=== PATIENT | female | born 1965 | race Caucasian/White ===

== ENCOUNTER 2017-09-11 23:50 | Emergency (ER) | payer OTHER ==
[2017-09-12 00:02] VITALS: BP 145/79; PULSE 108; TEMP 98.9; BMI 23.9
[2017-09-12] MEDS ORDERED: ACETAMINOPHEN INJECTION 100 ML IVPB ONE (01:43)
[2017-09-12] MEDS ORDERED: ONDANSETRON 4 MG/2 ML VIAL ONE (02:24)
[2017-09-12] MEDS ORDERED: ONDANSETRON 4 MG/2 ML VIAL IVPUSH ONE (02:25)
[2017-09-12] MEDS ORDERED: FAMOTIDINE 20 MG/50 ML IVPB 20 MG/50 ML MG IVPB ONE (02:25)
--- NOTE | 2017-09-12 02:33 | PDOC ---
History of Present Illness - General Chief Complaint: Pain, Acute Stated Complaint: STOMACH PAIN Time Seen by Provider: 09/12/17 01:54 History Source: Patient Exam Limitations: No Limitations - History of Present Illness Initial Comments: CHIEF COMPLAINT: 52 y/o afebrile female with PMH brain aneurysm c/o nausea, vomiting, diarrhea and abdominal pain since yesterday. HISTORY OF PRESENT ILLNESS: The patient states she thought she had food poisoning so she tried to deal with her symptoms at home but they continued to worsen and now she has very bad left lower abdominal pain and she cannot keep anything down. She denies fever, ELKINS, cough, runny nose, CP, SOB, back pain, hematuria, dysuria. Vital signs on arrival are notable for pulse of 108. REVIEW OF SYSTEMS: GENERAL/CONSTITUTIONAL: No fever/chills. No weakness. No weight change. HEAD, EYES, EARS, NOSE AND THROAT: No change in vision. No ear pain or discharge. No sore throat. CARDIOVASCULAR: No chest pain or shortness of breath. RESPIRATORY: No cough, wheezing, or hemoptysis. GASTROINTESTINAL: +nausea, vomiting, diarrhea, left lower abdominal pain. GENITOURINARY: +urinary pressure. Noo dysuria, frequency, or hematuria. MUSCULOSKELETAL: No joint or muscle swelling or pain. No neck or back pain. SKIN: No rash or easy bruising. NEUROLOGIC: No headache, vertigo, loss of consciousness, or loss of sensation. PHYSICAL EXAM: GENERAL: The patient is awake, alert, and fully oriented, writhing and screaming in pain. HEAD: Normal with no signs of trauma. ENT: Pupils equal, round and reactive to light, extraocular movements intact, sclera anicteric, conjunctiva clear. Neck supple. LUNGS: Clear to auscultation bilaterally. Normal excursion. No respiratory distress or use of accessory muscles. CV: RRR, S1/S2, no MRG. Cap refill < 2 sec. ABDOMEN: Soft, non-distended, very TTP of suprapubic and LLQ with guarding. No rigidity. hyperactive bowel sounds x 4 quadrants. Left flank pain. BACK: No CVA TTP b/l. EXTREMITIES: Normal range of motion, no edema. NEUROLOGICAL: Normal speech, normal gait. CN II-XII grossly intact. PSYCH: Normal mood, normal affect. SKIN: Warm, dry, normal turgor, no rashes or lesions noted. Past History - Past Medical History Allergies/Adverse Reactions: Allergies Allergy/AdvReac Type Severity Reaction Status Date / Time No Known Allergies Allergy Verified 12/22/15 14:50 Home Medications: Ambulatory Orders Ranitidine [Zantac -] 150 mg PO DAILY #30 tablet 12/24/15 Ondansetron [Zofran Odt -] 4 mg SL TID #8 od.tablet 09/12/17 Oxycodone HCl/Acetaminophen [Percocet 5-325 mg Tablet] 1 tab PO Q4H #8 tablet MDD 4 09/12/17 Tamsulosin HCl [Flomax] 0.4 mg PO DAILY #2 cap.er.24h 09/12/17 COPD: No Other medical history: Pt denies - Surgical History Neurologic Surgery: Yes (BRAIN ANEURISM REPAIR) - Suicide/Smoking/Psychosocial Hx Smoking History: Never smoked Have you smoked in the past 12 months: No Information on smoking cessation initiated: No Hx Alcohol Use: No Drug/Substance Use Hx: No Substance Use Type: None *Physical Exam - Vital Signs Last Vital Signs Temp Pulse Resp BP Pulse Ox 98.9 F 108 H 20 145/79 97 09/11/17 23:56 09/11/17 23:56 09/11/17 23:56 09/11/17 23:56 09/11/17 23:56 ED Treatment Course - LABORATORY CBC & Chemistry Diagram: 09/12/17 02:34 09/12/17 02:34 - RADIOLOGY Radiology Studies Ordered: Category Date Time Status ABDOMEN & PELVIS CT W/O CONTR [CT] Stat CT Scan 09/12/17 02:23 Stop Req ABDOMEN & PELVIS CT WITH CONTR [CT] Stat CT Scan 09/12/17 02:23 Ordered Medical Decision Making - Medical Decision Making A/P: 52 y/o female with LLQ pain, vomiting and diarrhea since yesterday. Plan is as follows: 1. labs 2. UA/culture 3. CT scan abd/pelvis 4. IV fluids 5. IV tylenol 6. IV zofran 7. IV pepcid 8. Reassess UA with ketones and blood; No UTI Patient still in pain after tylenol; gave IV toradol patient still in pain after toradol ordered 2mg of iv morphine CT scan abd/pelvis IMPRESSION: 2mm stone at left UVJ causing minimal hydronephrosis and slightly decreased parenchymal attenuation left kidney. 3mm nodule and adjacent partial atelectasis right lower lobe. Gave patient the results. She feels much better after morphine. will discharge to home wiht rx for zofran, percocet and flomax. Instructed her to drink plenty of fluids at home, follow up with her doctor and return to the ER with any worsening or concerning symptoms. The patient verbalizes understanding of all instructions, has no further questions and is awaiting discharge. *DC/Admit/Observation/Transfer Diagnosis at time of Disposition: Kidney stone on left side - Discharge Dispostion Disposition: HOME Condition at time of disposition: Improved - Referrals - Patient Instructions Printed Discharge Instructions: DI for Kidney Stones Additional Instructions: Discharge Instructions: -You have a kidney stone on the left side -3 prescriptions have been sent to your pharmacy; please take as prescribed -Drink plenty of fluids -Follow up with your doctor within 1 week -Return to the ER with any worsening or concerning symptoms - Post Discharge Activity
[2017-09-12 02:39] LABS: BASO % 0.5 % (0-2.0); EOS % 1.5 % (0-4.5); HEMATOCRIT 43.1 % (32.4-45.2); HEMOGLOBIN 14.9 GM/dL (10.7-15.3); LYMPH % 11.1 % (8-40); MCH 31.4 pg (25.7-33.7); MCHC 34.5 g/dl (32.0-36.0); MEAN CELL VOLUME 91.2 fl (80-96); MEAN PLT VOLUME 9.2 fl (7.5-11.1); MONO % 8.4 % (3.8-10.2); NEUT % 78.5 % (42.8-82.8); PLATELET COUNT 159 K/MM3 (134-434); RBC 4.73 M/mm3 (3.60-5.2); RDW 13.2 % (11.6-15.6); WHITE BLOOD COUNT 7.8 K/mm3 (4.0-10.0)
[2017-09-12] MEDS ORDERED: KETOROLAC TROMETHAMINE 30 MG/1 ML VIAL IVPUSH ONE (02:45)
[2017-09-12] MEDS ORDERED: KETOROLAC TROMETHAMINE 30 MG/1 ML VIAL ONE (02:47)
[2017-09-12 03:00] LABS: URINE APPEARANCE CLEAR; URINE BILIRUBIN NEGATIVE (<2.0 mg/dL); URINE BLOOD 3+ (NEGATIVE); URINE COLOR YELLOW; URINE GLUCOSE (UA) NEGATIVE (NEGATIVE); URINE KETONE 2+ (NEGATIVE); URINE LEUK ESTERASE NEGATIVE (NEGATIVE); URINE NITRITE NEGATIVE (NEGATIVE)
[2017-09-12 03:11] LABS: ALBUMIN 4.6 g/dl (3.4-5.0); ALK PHOS 54 U/L (45-117); ANION GAP 10 (8-16); BILIRUBIN,TOTAL 0.8 mg/dL (0.2-1.0); BLOOD UREA NITROGEN 13 mg/dL (7-18); CALCIUM 9.9 mg/dL (8.5-10.1); CHLORIDE 105 mmol/L (98-107); CO2 26 mmol/L (21-32); CREATININE 0.8 mg/dL (0.55-1.02); GLUCOSE,RANDOM 179 mg/dL (74-106); POTASSIUM 3.8 mmol/L (3.5-5.1); SGOT/AST 21 U/L (15-37); SGPT/ALT 21 U/L (12-78); SODIUM 141 mmol/L (136-145); TOT PROT 7.9 g/dl (6.4-8.2)
[2017-09-12 03:14] LABS: URINE PROTEIN 1+ (NEGATIVE)
[2017-09-12 03:15] LABS: EPI CELLS RARE /HPF (FEW); URINE MUCUS MODERATE
[2017-09-12] MEDS ORDERED: morphine CARPU-JECT 2 MG/1 ML DISP.SYRIN IVPUSH ONE (03:17)
[2017-09-12] MEDS ORDERED: morphine SULFATE 4 MG/ML VIAL ONE (03:18)
[2017-09-12] MEDS ORDERED: TAMSULOSIN HCL 0.4 MG CAP.ER.24H (FP) PO ONE (04:42)
--- NOTE | 2017-09-12 05:03 | PDOC ---
*Physical Exam - Vital Signs Last Vital Signs Temp Pulse Resp BP Pulse Ox 98.9 F 108 H 20 145/79 97 09/11/17 23:56 09/11/17 23:56 09/11/17 23:56 09/11/17 23:56 09/11/17 23:56 ED Treatment Course - LABORATORY CBC & Chemistry Diagram: 09/12/17 02:34 09/12/17 02:34 - ADDITIONAL ORDERS Additional order review: Laboratory Results 09/12/17 09/12/17 02:34 02:34 Sodium 141 Potassium 3.8 Chloride 105 Carbon Dioxide 26 Anion Gap 10 BUN 13 Creatinine 0.8 Creat Clearance w eGFR > 60 Random Glucose 179 H Calcium 9.9 Total Bilirubin 0.8 D AST 21 ALT 21 Alkaline Phosphatase 54 Total Protein 7.9 Albumin 4.6 Urine Color Yellow Urine Appearance Clear Urine pH 7.0 D Ur Specific [place] 1.030 Urine Protein 1+ H Urine Glucose (UA) Negative Urine Ketones 2+ H Urine Blood 3+ H Urine Nitrite Negative Urine Bilirubin Negative Urine Urobilinogen 2.0 H Ur Leukocyte Esterase Negative Urine WBC (Auto) 4 Urine RBC (Auto) 204 Ur Epithelial Cells Rare Urine Mucus Moderate 09/12/17 02:34 RBC 4.73 MCV 91.2 MCHC 34.5 RDW 13.2 MPV 9.2 Neutrophils % 78.5 D Lymphocytes % 11.1 D Monocytes % 8.4 Eosinophils % 1.5 D Basophils % 0.5 - Medications Given in the ED: ED Medications Discontinued Medications Generic Name Dose Route Start Last Admin Trade Name Freq PRN Reason Stop Dose Admin Ketorolac Tromethamine 30 mg 09/12/17 02:45 09/12/17 03:01 Toradol Injection - IVPUSH 09/12/17 02:46 30 mg ONCE ONE Administration Morphine Sulfate 2 mg 09/12/17 03:17 09/12/17 03:48 Morphine Injection - IVPUSH 09/12/17 03:18 2 mg ONCE ONE Administration Ondansetron HCl 4 mg 09/12/17 02:25 09/12/17 03:01 Zofran Injection IVPUSH 09/12/17 02:26 4 mg ONCE ONE Administration Tamsulosin HCl 0.4 mg 09/12/17 04:42 09/12/17 04:43 Flomax - PO 09/12/17 04:43 0.4 mg ONCE ONE Administration Medical Decision Making - Medical Decision Making 09/12/17 05:02 agree with care from SP[facility] *DC/Admit/Observation/Transfer Diagnosis at time of Disposition: Kidney stone on left side - Discharge Dispostion Disposition: HOME Condition at time of disposition: Improved - Prescriptions Prescriptions: Ondansetron [Zofran Odt -] 4 mg SL TID #8 od.tablet Oxycodone HCl/Acetaminophen [Percocet 5-325 mg Tablet] 1 tab PO Q4H #8 tablet MDD 4 Tamsulosin HCl [Flomax] 0.4 mg PO DAILY #2 cap.er.24h - Referrals - Patient Instructions Printed Discharge Instructions: DI for Kidney Stones Additional Instructions: Discharge Instructions: -You have a kidney stone on the left side -3 prescriptions have been sent to your pharmacy; please take as prescribed -Drink plenty of fluids -Follow up with your doctor within 1 week -Return to the ER with any worsening or concerning symptoms - Post Discharge Activity
[2017-09-12] MEDS ORDERED: TAMSULOSIN HCL 0.4 MG CAP.ER.24H (FP) ONE (05:13)
[2017-09-12] MEDS ORDERED: FAMOTIDINE IV 20 MG/12 ML VIAL IVPUSH SCH (10:00)
== END 2017-09-12 05:15 | disposition home or self-care (01) ==
LOC: JER 23:50
PROC: 3E0333Z Introduction of Anti-inflammatory into Peripheral Vein, Percutaneous Approach (ICD-10-PCS; principal; 2017-09-11)
PROC: 3E033GC Introduction of Other Therapeutic Substance into Peripheral Vein, Percutaneous Approach (ICD-10-PCS; 2017-09-11)
PROC: 3E033NZ Introduction of Analgesics, Hypnotics, Sedatives into Peripheral Vein, Percutaneous Approach (ICD-10-PCS; 2017-09-11)
DX: N13.2 Hydronephrosis with renal and ureteral calculous obstruction (principal); Z86.79 Personal history of other diseases of the circulatory system
CPT/HCPCS: 36415; 74177-TC; 80053; 81003; 81015; 85025; 87086; 96374; 96375; 99282-25

== ENCOUNTER 2022-06-19 22:26 | Day surgery (SDC) | payer OTHER ==
[2022-06-19] MEDS ORDERED: morphine CARPU-JECT 4 MG/1 ML DISP.SYRIN IVPUSH ONE (22:45)
[2022-06-19] MEDS ORDERED: SODIUM CHLORIDE 1,000 ML IV ONE (22:45)
[2022-06-19] MEDS ORDERED: KETOROLAC TROMETHAMINE 30 MG/1 ML VIAL IVPUSH ONE (22:45)
[2022-06-19] MEDS ORDERED: morphine SULFATE 4 MG/ML VIAL ONE (23:06)
[2022-06-19 23:16] LABS: HEMATOCRIT 43.5 % (32.4-45.2); HEMOGLOBIN 15.1 G/dL (10.7-15.3); MCH 30.7 pg (25.7-33.7); MCHC 34.7 g/dl (32.0-36.0); MEAN CELL VOLUME 88.6 fl (80-96); MEAN PLT VOLUME 8.5 fl (7.5-11.1); PLATELET COUNT 154.7 10^3/uL (134-434); RBC 4.91 10^6/uL (3.60-5.2); RDW 14.2 % (11.6-15.6); WHITE BLOOD COUNT 5.7 10^3/uL (4.0-10.8)
[2022-06-19 23:27] LABS: ALBUMIN 4.7 g/dl (3.4-5.0); BILIRUBIN,TOTAL 3.2 mg/dl (0.2-1); CALCIUM 9.5 mg/dl (8.5-10); CREATININE 0.7 mg/dl (0.55-1.3); TOT PROT 7.6 g/dl (6.4-8.2)
[2022-06-20] MEDS ORDERED: PIPERACILLIN/TAZOB 3.375 GM 3.375 GM in DEXTROSE 5%-WATER - 50 ML IVPB ONE (00:11)
[2022-06-20] MEDS ORDERED: LACTATED RINGERS SOLUTION 1,000 ML IV SCH ×2 (03:30→18:24)
[2022-06-20] MEDS ORDERED: KCL 10 MEQ IVPB 10 MEQ/100 ML INFUS.BAG IVPB SCH (04:00)
[2022-06-20] MEDS ORDERED: morphine SULFATE 4 MG/ML VIAL IVPUSH PRN ×2 (05:00→18:24)
[2022-06-20 06:59] LABS: HEMATOCRIT 37.2 % (32.4-45.2); HEMOGLOBIN 12.8 GM/dL (10.7-15.3); MCH 30.5 pg (25.7-33.7); MCHC 34.4 g/dl (32.0-36.0); MEAN CELL VOLUME 88.7 fl (80-96); PLATELET COUNT 98 10^3/uL (134-434); RDW 13.4 % (11.6-15.6); WHITE BLOOD COUNT 3.4 K/mm3 (4.0-10.0)
[2022-06-20 07:06] LABS: INR 1.26 (0.83-1.09); PROTHROMBIN TIME (PATIENT) 14.5 SEC (9.7-13.0)
[2022-06-20 07:19] LABS: CALCIUM 8.4 mg/dL (8.5-10.1)
[2022-06-20 07:20] LABS: ALBUMIN 3.7 g/dl (3.4-5.0)
[2022-06-20 07:23] LABS: CREATININE 0.6 mg/dL (0.55-1.3)
[2022-06-20 07:24] LABS: BILIRUBIN,TOTAL 1.1 mg/dL (0.2-1); TOT PROT 6.3 g/dl (6.4-8.2)
[2022-06-20] MEDS ORDERED: PIPERACILLIN/TAZOB 3.375 GM 3.375 GM in DEXTROSE 5%-WATER - 50 ML IVPB SCH ×2 (10:00→18:00)
[2022-06-20] MEDS ORDERED: PIPERACILLIN/TAZOBACTAM 3.375 GM VIAL IVPB ONE (10:01)
[2022-06-20] MEDS ORDERED: KCL 10 MEQ IVPB 10 MEQ/100 ML INFUS.BAG IVPB ONE (10:29)
[2022-06-20] MEDS ORDERED: BUPIVACAINE HCL/PF 0.25% (2.5MG/ML) 10 ML VIAL ONE (14:51)
[2022-06-20] MEDS ORDERED: INDOCYANINE GREEN 25 MG/10 ML VIAL IVPUSH ONE (14:51)
[2022-06-20] MEDS ORDERED: SUCCINYLCHOLINE CHLORIDE 200 MG/10 ML SYRINGE ONE (15:25)
[2022-06-20] MEDS ORDERED: SEVOFLURANE 250 ML BTL ONE (15:25)
[2022-06-20] MEDS ORDERED: ROCURONIUM BROMIDE 50 MG/5 ML SYRINGE ONE (15:44)
[2022-06-20] MEDS ORDERED: PROPOFOL 20 ML ONE (15:44)
[2022-06-20] MEDS ORDERED: MIDAZOLAM HCL 2 MG/2 ML SINGLE DOSE VIAL ONE (15:44)
[2022-06-20] MEDS ORDERED: DEXAMETHASONE SOD PHOSPHATE 4 MG/1 ML VIAL ONE (16:21)
[2022-06-20] MEDS ORDERED: KETOROLAC TROMETHAMINE 30 MG/1 ML VIAL ONE (16:21)
[2022-06-20] MEDS ORDERED: ACETAMINOPHEN INJECTION 100 ML IVPB ONE (16:21)
[2022-06-20] MEDS ORDERED: ONDANSETRON 4 MG/2 ML VIAL ONE (16:21)
[2022-06-20] MEDS ORDERED: BUPIVACAINE HCL/PF 2.5 MG/ML - 30 ML VIAL IJ ONE (16:33)
[2022-06-20] MEDS ORDERED: IOHEXOL 300 MG/ML INFUS..BTL IV ONE (17:10)
[2022-06-20] MEDS ORDERED: NEOSTIGMINE METHYLSULFATE 0.5 MG/ML - 10 ML MDV ONE (17:15)
[2022-06-20] MEDS ORDERED: GLYCOPYRROLATE 0.2 MG/1 ML VIAL ONE ×2 (17:16)
[2022-06-20] MEDS ORDERED: oxyCODONE HCL 5 MG TABLET PO PRN ×4 (18:09→18:24)
[2022-06-20] MEDS ORDERED: ONDANSETRON 4 MG/2 ML VIAL IVPUSH PRN (18:09)
[2022-06-20] MEDS: LACTATED RINGERS SOLUTION 1,000 ML IV SCH (20:15)
[2022-06-20 20:38] VITALS: BMI 26.0
[2022-06-20] MEDS ORDERED: ACETAMINOPHEN 325 MG TABLET (FP) PO PRN (22:00)
[2022-06-20] MEDS: DOCUSATE SODIUM 100 MG CAPSULE (FP) PO SCH (22:23)
[2022-06-21] MEDS: ACETAMINOPHEN 500 MG TABLET (FP) PO SCH ×3 (01:18→14:12)
[2022-06-21] MEDS: PIPERACILLIN/TAZOB 3.375 GM 3.375 GM in DEXTROSE 5%-WATER - 50 ML IVPB SCH ×3 (01:19→18:10)
[2022-06-21 01:50] VITALS: RESP 18
[2022-06-21] MEDS: LACTATED RINGERS SOLUTION 1,000 ML IV SCH ×2 (06:30→13:10)
[2022-06-21 09:34] LABS: LIPASE 118 U/L (73-393)
[2022-06-21 09:35] LABS: AMYLASE 60 U/L (25-115)
[2022-06-21] MEDS: DOCUSATE SODIUM 100 MG CAPSULE (FP) PO SCH (09:52)
[2022-06-21 14:32] VITALS: BP 104/60; PULSE 86; TEMP 98.1
== END 2022-06-21 19:25 | disposition home or self-care (01) ==
LOC: FER 22:26 → UNDOADMIN 06-20 13:59 → JERBED 06-20 13:59 → JASUSAT 06-20 19:12 → SUATTDRO 06-20 19:12 → J2C 06-20 19:13 → J6S 06-20 19:59 → JASUSAT 06-21 19:25
PROVIDERS: ATTEND Internal Medicine
PROC: 0FT44ZZ Resection of Gallbladder, Percutaneous Endoscopic Approach (ICD-10-PCS; principal; 2022-06-20 20:00)
PROC: BF14YZZ Fluoroscopy of Gallbladder, Bile Ducts and Pancreatic Ducts using Other Contrast (ICD-10-PCS; 2022-06-20 20:00)
DX: K85.10 Biliary acute pancreatitis without necrosis or infection (principal); K80.10 Calculus of gallbladder with chronic cholecystitis without obstruction
CPT/HCPCS: 0241U-QW; 36415; 70450-TC; 76000-TC-FY; 76705-TC; 80053; 81003; 81015; 82150; 82550; 83690; 83735; 84484; 85025; 85027; 85610; 86850; 86900; 86901; 88304-TC; 93005; 94010; 94760; 99285-25